=== PATIENT | female | born 1990 | race Two or more races ===

== ENCOUNTER 2022-08-02 14:21 | Emergency (ER) | payer OTHER ==
[~2022-08-02] VITALS: Ht 152.4 cm; Wt 94.4 kg
[2022-08-02 16:52] VITALS: BP 151/76
[2022-08-02] MEDS ORDERED: IOHEXOL 350 MG/ML 100ML IJ ONE (16:58)
[2022-08-02] MEDS ORDERED: ACETAMINOPHEN 500 MG TAB PO ONE (17:00)
== END 2022-08-02 17:34 | disposition home or self-care (01) ==
LOC: ER 14:21
DX: S80.211A Abrasion, right knee, initial encounter (principal); R51.9 Headache, unspecified; V29.99XA Rider (driver) (passenger) of other motorcycle injured in unspecified traffic accident, initial encounter; Y93.55 Activity, bike riding; Y92.89 Other specified places as the place of occurrence of the external cause; Y99.8 Other external cause status
CPT/HCPCS: 70450